=== PATIENT | female | born 1945 | race Caucasian/White ===

== ENCOUNTER 2020-05-02 10:15 | Emergency (ER) | payer MEDICARE, OTHER ==
[2020-05-02] MEDS ORDERED: HYDROmorphone 1 MG/ML 1 ML SYRINGE IVP STA ×2 (10:42→12:45)
[2020-05-02 10:54] LABS: Appearance,Urine Clear (Clear); Basophils % (A) 0 %; Bilirubin,Urine Negative (Negative); Blood,Urine Negative (Negative); Color,Urine Yellow; Eosinophils # (A) 0.1 k/uL (0-0.7); Eosinophils % (A) 1 %; Glucose,Urine (UA) Negative (Negative); HCT 39.3 % (34.0-46.0); HGB 13.4 gm/dL (11.4-16.0); Ketones,Urine Negative (Negative); Leukocyte Esterase,Urine Negative (Negative); Lymphocytes # (A) 0.7 k/uL (1.0-4.8); Lymphocytes % (A) 7 %; MCH 30.7 pg (25.0-35.0); MCHC 34.1 g/dL (31.0-37.0); Monocytes # (A) 0.5 k/uL (0-1.0); Monocytes % (A) 5 %; Neutrophils # (A) 8.3 k/uL (1.3-7.7); Neutrophils % (A) 85 %; Nitrite,Urine Negative (Negative); Platelet Count 167 k/uL (150-450); Protein,Urine Trace (Negative); RBC 4.36 m/uL (3.80-5.40); RDW 14.5 % (11.5-15.5); Specific Gravity,Urine 1.021 (1.001-1.035); WBC 9.8 k/uL (3.8-10.6)
[2020-05-02 11:05] LABS: ALT 36 U/L (4-34); AST 27 U/L (14-36); African American GFR (CKD) >90 (>60 ml/min/1.73 sqM); Albumin 3.3 g/dL (3.5-5.0); Alkaline Phosphatase 90 U/L (38-126); Anion Gap 2 mmol/L; Blood Urea Nitrogen 17 mg/dL (7-17); Calcium 8.6 mg/dL (8.4-10.2); Carbon Dioxide 28 mmol/L (22-30); Chloride 106 mmol/L (98-107); Creatine Kinase 34 U/L (30-135); Glucose 186 mg/dL (74-99); Magnesium 1.7 mg/dL (1.6-2.3); Non-African American GFR(CKD) >90 (>60 ml/min/1.73 sqM); Potassium 4.1 mmol/L (3.5-5.1); Sodium 136 mmol/L (137-145); Total Bilirubin 0.9 mg/dL (0.2-1.3); Total Protein 5.7 g/dL (6.3-8.2)
--- NOTE | 2020-05-02 11:09 | XR ---
EXAMINATION TYPE: XR Hip RT and AP Pelvis DATE OF EXAM: 05/02/2020 COMPARISON: NONE HISTORY: Pelvic and right hip pain after trauma injury. TECHNIQUE: 2 frontal views of the pelvis are obtained. Two views of the right hip are obtained. FINDINGS: [place] osseous structures are demineralized. There is acute comminuted displaced intertroch anteric fracture right proximal femur. Hip joints show moderate axial joint space loss with mild to moderate acetabular spurring bilaterally. No hip joint dislocation is seen. Pubic symphysis is intact . Sacroiliac joints are preserved. No additional fracture seen. Scattered tiny bilateral pelvic phleb olith noted. IMPRESSION: There is acute comminuted displaced intertrochanteric fracture right proximal femur.
[2020-05-02 11:10] LABS: Partial Thromboplastin Time 22.6 sec (22.0-30.0)
[2020-05-02] MEDS ORDERED: DIPH,PERTUS(ACELL)TETVAC-LF 0.5 ML VIAL IM ONE (11:12)
--- NOTE | 2020-05-02 11:12 | ED ---
Fall HPI - General Chief Complaint: Fall Stated Complaint: Fall-Hip Injury Time Seen by Provider: 05/02/20 10:15 Source: patient, EMS, old records reviewed Mode of arrival: EMS - History of Present Illness Initial Comments: This is a 75-year-old female was brought in EMS after falling this morning. She states she recently did have her medications changes been somewhat unsteady on her feet since that time she fell around 2 AM complains or right hip pain prior to that she states she had a scratch on her right leg where a dog had apparently caught her. She was brought in by EMS she had severe pain it was improved after IV medication she did demonstrate shortening and lateral rotation of the right lower extremity. She denies any head neck or upper back pain. MD Complaint: fall - Related Data Home Medications Medication Instructions Recorded Confirmed Acetaminophen [Tylenol] 325 mg PO Q6H PRN 05/02/20 05/02/20 Albuterol Sulfate [Proair Hfa] 1 - 2 puff INHALATION RT-Q6H PRN 05/02/20 05/02/20 Apixaban [Eliquis] 5 mg PO BID 05/02/20 05/02/20 Atorvastatin [Lipitor] 20 mg PO HS 05/02/20 05/02/20 Cholecalciferol [Vitamin D3 (25 2,000 unit PO DAILY 05/02/20 05/02/20 Mcg = 1000 Iu)] Glimepiride [Amaryl] 4 mg PO BID 05/02/20 05/02/20 Ketoconazole 2% Cream [Nizoral 2%] 1 applic TOPICAL DAILY PRN 05/02/20 05/02/20 LORazepam [Ativan] 0.5 mg PO DAILY PRN 05/02/20 05/02/20 Levothyroxine Sodium [Synthroid] 25 mcg PO AC-BRKFST 05/02/20 05/02/20 Losartan Potassium [Cozaar] 25 mg PO DAILY 05/02/20 05/02/20 Metoprolol Succinate (ER) [Toprol 50 mg PO HS 05/02/20 05/02/20 Xl] Multivitamins, Thera [Multivitamin 1 tab PO DAILY 05/02/20 05/02/20 (formulary)] Mupirocin 2% Oint [Bactroban 2% 1 applic TOPICAL BID 05/02/20 05/02/20 Oint] Nystatin 100,000 Unit/gm Powd 1 applic TOPICAL BID PRN 05/02/20 05/02/20 [Mycostatin Powder] [place] 8% 1 applic TOPICAL DAILY PRN 05/02/20 05/02/20 Sertraline [Zoloft] 200 mg PO HS 05/02/20 05/02/20 Triamcinolone 0.1% Cream [Kenalog 1 applic TOPICAL BID 05/02/20 05/02/20 0.1% Cream] Urea40 1 applic TOPICAL DAILY 05/02/20 05/02/20 buPROPion HCL [Wellbutrin SR] 150 mg PO Q12H 05/02/20 05/02/20 tiZANidine HCL [Zanaflex] 2 mg PO DAILY PRN 05/02/20 05/02/20 Allergies Allergy/AdvReac Type Severity Reaction Status Date / Time sulfadiazine Allergy Rash/Hives Verified 05/02/20 11:38 Review of Systems ROS Statement: Those systems with pertinent positive or pertinent negative responses have been documented in the HPI. ROS Other: All systems not noted in ROS Statement are negative. Past Medical History Past Medical History: Atrial Fibrillation, Diabetes Mellitus, Hypertension History of Any Multi-Drug Resistant Organisms: None Reported Past Surgical History: Tonsillectomy Past Psychological History: Anxiety, Depression Smoking Status: Former smoker Past Alcohol Use History: None Reported Past Drug Use History: None Reported General Exam - General Exam Comments Initial Comments: This is a 75-year-old female well-developed well-nourished awake alert oriented 3 [place] Coma Scale 15 Limitations: no limitations General appearance: alert, anxious Head exam: Present: atraumatic, normocephalic, normal inspection Eye exam: Present: normal appearance, PERRL, EOMI. Absent: scleral icterus, conjunctival injection, periorbital swelling ENT exam: Present: normal exam, mucous membranes moist Neck exam: Present: normal inspection, full ROM. Absent: tenderness, meningismus, lymphadenopathy Respiratory exam: Present: normal lung sounds bilaterally. Absent: respiratory distress, wheezes, rales, rhonchi, stridor Cardiovascular Exam: Present: tachycardia, irregular rhythm. Absent: systolic murmur, diastolic murmur, rubs, gallop, clicks GI/Abdominal exam: Present: soft, normal bowel sounds. Absent: distended, tend erness, guarding, rebound, rigid Extremities exam: Present: tenderness, normal capillary refill, other (Tenderness palpation of the right hip with evidence of shortening and lateral rotation. There is a skin avulsion noted to the mid and distal anterior douglas that was covered with a dressing no evidence of any localized infection at this time). Absent: pedal edema, joint swelling, calf tenderness Back exam: Present: normal inspection Neurological exam: Present: alert, oriented X3, CN II-XII intact Psychiatric exam: Present: normal affect, normal mood Skin exam: Present: warm, dry, normal color. Absent: intact, rash Course Vital Signs 05/02/20 10:18 Temperature 97.9 F Pulse Rate 121 H Respiratory 20 Rate Blood Pressure 180/96 O2 Sat by Pulse 99 Oximetry Medical Decision Making - Medical Decision Making I did discuss case with patient family members as well as with Corey Harp. Patient is referred to Dr. Clark at [facility] was agreed to set the patient transfer. Additionally I did discuss the case with the transfer team Dr. Johnson is the accepting physician in the emergency department. Patient be transferred for higher level care by EMS. - Lab Data Result diagrams: 05/02/20 10:35 05/02/20 10:35 Lab Results 05/02/20 05/02/20 05/02/20 Range/Units 10:35 10:35 10:35 WBC 9.8 (3.8-10.6) k/uL RBC 4.36 (3.80-5.40) m/uL Hgb 13.4 (11.4-16.0) gm/dL Hct 39.3 (34.0-46.0) % MCV 90.0 (80.0-100.0) fL MCH 30.7 (25.0-35.0) pg MCHC 34.1 (31.0-37.0) g/dL RDW 14.5 (11.5-15.5) % Plt Count 167 (150-450) k/uL MPV 7.0 Neutrophils % 85 % Lymphocytes % 7 % Monocytes % 5 % Eosinophils % 1 % Basophils % 0 % Neutrophils # 8.3 H (1.3-7.7) k/uL Lymphocytes # 0.7 L (1.0-4.8) k/uL Monocytes # 0.5 (0-1.0) k/uL Eosinophils # 0.1 (0-0.7) k/uL Basophils # 0.0 (0-0.2) k/uL PT (9.0-12.0) sec INR (<1.2) APTT (22.0-30.0) sec Sodium 136 L (137-145) mmol/L Potassium 4.1 (3.5-5.1) mmol/L Chloride 106 (98-107) mmol/L Carbon Dioxide 28 (22-30) mmol/L Anion Gap 2 mmol/L BUN 17 (7-17) mg/dL Creatinine 0.54 (0.52-1.04) mg/dL Est GFR (CKD-EPI)AfAm >90 (>60 ml/min/1.73 sqM) Est GFR (CKD-EPI)NonAf >90 (>60 ml/min/1.73 sqM) Glucose 186 H (74-99) mg/dL Calcium 8.6 (8.4-10.2) mg/dL Magnesium 1.7 (1.6-2.3) mg/dL Total Bilirubin 0.9 (0.2-1.3) mg/dL AST 27 (14-36) U/L ALT 36 H (4-34) U/L Alkaline Phosphatase 90 (38-126) U/L Creatine Kinase 34 (30-135) U/L Troponin I (0.000-0.034) ng/mL Total Protein 5.7 L (6.3-8.2) g/dL Albumin 3.3 L (3.5-5.0) g/dL Urine Color Yellow Urine Appearance Clear (Clear) Urine pH 7.0 (5.0-8.0) Ur Specific [place] 1.021 (1.001-1.035) Urine Protein Trace H (Negative) Urine Glucose (UA) Negative (Negative) Urine Ketones Negative (Negative) Urine Blood Negative (Negative) Urine Nitrite Negative (Negative) Urine Bilirubin Negative (Negative) Urine Urobilinogen 2.0 (<2.0) mg/dL Ur Leukocyte Esterase Negative (Negative) 05/02/20 05/02/20 Range/Units 10:35 10:35 WBC (3.8-10.6) k/uL RBC (3.80-5.40) m/uL Hgb (11.4-16.0) gm/dL Hct (34.0-46.0) % MCV (80.0-100.0) fL MCH (25.0-35.0) pg MCHC (31.0-37.0) g/dL RDW (11.5-15.5) % Plt Count (150-450) k/uL MPV Neutrophils % % Lymphocytes % % Monocytes % % Eosinophils % % Basophils % % Neutrophils # (1.3-7.7) k/uL Lymphocytes # (1.0-4.8) k/uL Monocytes # (0-1.0) k/uL Eosinophils # (0-0.7) k/uL Basophils # (0-0.2) k/uL PT 11.0 (9.0-12.0) sec INR 1.0 (<1.2) APTT 22.6 (22.0-30.0) sec Sodium (137-145) mmol/L Potassium (3.5-5.1) mmol/L Chloride (98-107) mmol/L Carbon Dioxide (22-30) mmol/L Anion Gap mmol/L BUN (7-17) mg/dL Creatinine (0.52-1.04) mg/dL Est GFR (CKD-EPI)AfAm (>60 ml/min/1.73 sqM) Est GFR (CKD-EPI)NonAf (>60 ml/min/1.73 sqM) Glucose (74-99) mg/dL Calcium (8.4-10.2) mg/dL Magnesium (1.6-2.3) mg/dL Total Bilirubin (0.2-1.3) mg/dL AST (14-36) U/L ALT (4-34) U/L Alkaline Phosphatase (38-126) U/L Creatine Kinase (30-135) U/L Troponin I <0.012 (0.000-0.034) ng/mL Total Protein (6.3-8.2) g/dL Albumin (3.5-5.0) g/dL Urine Color Urine Appearance (Clear) Urine pH (5.0-8.0) Ur Specific [place] (1.001-1.035) Urine Protein (Negative) Urine Glucose (UA) (Negative) Urine Ketones (Negative) Urine Blood (Negative) Urine Nitrite (Negative) Urine Bilirubin (Negative) Urine Urobilinogen (<2.0) mg/dL Ur Leukocyte Esterase (Negative) - EKG Data -: EKG Interpreted by Me EKG Comments: Atrial flutter with variable AV block rate 111 QRS 1:30 QT since QTC 340/427 left exodeviation LVH - Radiology Data Radiology results: report reviewed (I did review the imaging and report evidence of a displaced comminuted right intertrochanteric right hip fracture), image reviewed Disposition Clinical Impression: Fall, Closed right hip fracture, Chronic atrial fibrillation, Avulsion of skin of right lower leg Disposition: OTHER INSTITUTION NOT DEFINED Condition: Fair Referrals: Corrine Fischer MD [Primary Care Provider] - 1-2 days - Out of Hospital Transfer - Req. Specs Out of Hospital Transfer - Requested Specifics: Other Emergency Center
--- NOTE | 2020-05-02 11:18 | XR ---
EXAMINATION TYPE: XR chest 1V DATE OF EXAM: 05/02/2020 COMPARISON: NONE HISTORY: Fall injury with pain. TECHNIQUE: Single frontal supine view of the chest is obtained. FINDINGS: There is no focal air space opacity, pleural effusion, or pneumothorax seen. The cardiac silhouette size is enlarged. The osseous structures are demineralized. IMPRESSION: Cardiomegaly without suspicious acute pulmonary process.
[2020-05-02 12:23] VITALS: BP 168/88; PULSE 78; RESP 18; TEMP 97.6
== END 2020-05-02 13:02 | disposition other institution (70) ==
LOC: EC 10:15
DX: S72.141A Displaced intertrochanteric fracture of right femur, initial encounter for closed fracture (principal); I48.20 Chronic atrial fibrillation, unspecified; S81.801A Unspecified open wound, right lower leg, initial encounter; E11.9 Type 2 diabetes mellitus without complications; I10 Essential (primary) hypertension; Z23 Encounter for immunization; F41.9 Anxiety disorder, unspecified; F32.9 Major depressive disorder, single episode, unspecified; Z79.01 Long term (current) use of anticoagulants; Z79.899 Other long term (current) drug therapy; Z79.84 Long term (current) use of oral hypoglycemic drugs; Z87.891 Personal history of nicotine dependence; Z88.2 Allergy status to sulfonamides; W19.XXXA Unspecified fall, initial encounter
CPT/HCPCS: 36415; 93005; 80053; 82550; 83735; 84484; 85025; 85610; 85730; 81003; 73502; 71045; 90715; 99285; 96374; 96376; 90471; J1170

== ENCOUNTER → 2022-02-26 | Outpatient (CLI) | payer MEDICARE, OTHER ==
--- NOTE | 2022-02-26 15:38 | P.SLEEP ---
History of Present Illness DATE: 02/26/2022 CONSULTATION/NEW PATIENT EVALUATION HISTORY OF PRESENT ILLNESS/SLEEP-WAKE EVALUATION: 76 year old lady had been evaluated in the sleep center for possible obstructive sleep apnea hypopnea syndrome. SLEEP SCHEDULE: Usually sleep schedule on weekdays from 12 midnight to 12 known, during days off from 2 AM until 7:30 AM. FALLING ASLEEP: No significant problems with falling asleep, although patient has TV set and bedroom. DURING SLEEP: Patient usually sleeps on the back position with snoring and witnessed episodes of stop breathing during the sleep. Positive history of dry mouth, panic attack, palpitation, sleep talking. Patient wakes up from sleep up to 4 times with more then 2 episodes of nocturia. No history of hypnogogical hallucinations, sleep paralysis, or cataplexy. DURING THE DAY/WAKE STATE: Patient wakes up tired, has difficulties to pay attention, falling asleep during the day, has problems with memory concentration, anxiety, claustrophobia.. [place] sleepiness scale is significantly increased to 12. Patient takes nap around 3 PM. PAST MEDICAL HISTORY: Hypertension, arterial fibrillation, diabetes mellitus, depression, overactive bladder . PAST SURGICAL HISTORY: [].tonsillectomy, right hip surgery for fracture in 2019. MEDICATIONS: Levothyroxine 25 g once a day, Eliquis 5 mg once a day, glimepiride 4 mg once a day, metformin 500 mg, metoprolol 100 mg once a day, sertraline 200 mg once a day. SOCIAL HISTORY: Positive for smoking in the past, quit about 40 years ago , alcohol consumption none at the present time. FAMILY HISTORY: Hypertension, heart problems, cancer, depression, diabetes. REVIEW OF SYSTEMS: Snoring, multiple awakenings from sleep, sleepiness during the day. No fevers. No double vision. No recent chest pain. No shortness of breath. No abdominal pain. No bleeding episodes. No blood in urine. No seizure episodes. PHYSICAL EXAMINATION: GENERAL: A pleasant patient without any distress. VITAL SIGNS: BP 137/84 , HR 72 , RR 14 , weight 208.2 pounds, height 5 foot 7 inches, body mass index 32.5 . HEENT: PERRLA, EOMI. Evaluation of oropharynx showed tongue protrudes midline, low position of soft palate Mallampati 3. NECK: Supple. No JVD. Thyroid is not palpable. 15 and three-quarter inches in circumference. LUNGS: Clear to percussion and to auscultation. Good air exchange. No wheezing or rhonchi. HEART: S1, S2 irregular. No murmurs, gallops or rubs. ABDOMEN: Soft and nontender. Bowel sounds are present. No organomegaly appre ciated. EXTREMITIES: No clubbing or cyanosis. [employer]ER: Awake, alert, and oriented x3. Cranial nerves 2 to 7 intact. There is no fasciculation or atrophy noted. No focal deficits observed. ASSESSMENT: 1. Snoring, multiple awakenings from sleep, witnessed episodes of stop breathing during the sleep, low position of soft palate Mallampati 3, sleepiness [place] Sleepiness Scale increased to 12. Obstructive sleep apnea hypopnea syndrome. 2. Hypertension. 3 atrial fibrillation. 4. Mild obesity BMI 32.5. 5 diabetes mellitus. 6. History of overactive bladder. 7. History of depression. 8. Status post tonsillectomy. 9. Status post right hip surgery for fracture. PLAN: 1. Polysomnography for evaluation of patient's breathing during sleep. 2. CPAP/BiPAP titration if sleep study confirms obstructive sleep apnea- hypopnea syndrome. 3. Preferable position during sleep on the side. 4. No driving if patient feels any sleepiness. Patient is aware of civil and criminal liability for unsafe driving. 5. Sleep hygiene with regular sleep time for at least 7.5-8 hours. 6. Watching weight. Thank you very much for referring this patient for consultation. Sincerely, Mart Monsalve MD, PhD, FAASM. Diplomat of [place] [employer], Sleep Medicine Board by [place] [employer] [place] [employer] [facility] Past Medical History Past Medical History: Atrial Fibrillation, Diabetes Mellitus, Hypertension History of Any Multi-Drug Resistant Organisms: None Reported Past Surgical History: Tonsillectomy Past Psychological History: Anxiety, Depression Smoking Status: Former smoker Past Alcohol Use History: None Reported Past Drug Use History: None Reported Medications and Allergies Home Medications Medication Instructions Recorded Confirmed Type Acetaminophen [Tylenol] 325 mg PO Q6H PRN 05/02/20 05/02/20 History Albuterol Sulfate [Proair Hfa] 1 - 2 puff INHALATION RT-Q6H PRN 05/02/20 05/02/20 History Apixaban [Eliquis] 5 mg PO BID 05/02/20 05/02/20 History Atorvastatin [Lipitor] 20 mg PO HS 05/02/20 05/02/20 History Cholecalciferol [Vitamin D3 (25 2,000 unit PO DAILY 05/02/20 05/02/20 History Mcg = 1000 Iu)] Glimepiride [Amaryl] 4 mg PO BID 05/02/20 05/02/20 History Ketoconazole 2% Cream [Nizoral 2%] 1 applic TOPICAL DAILY PRN 05/02/20 05/02/20 History LORazepam [Ativan] 0.5 mg PO DAILY PRN 05/02/20 05/02/20 History Levothyroxine Sodium [Synthroid] 25 mcg PO AC-BRKFST 05/02/20 05/02/20 History Losartan Potassium [Cozaar] 25 mg PO DAILY 05/02/20 05/02/20 History Metoprolol Succinate (ER) [Toprol 50 mg PO HS 05/02/20 05/02/20 History Xl] Multivitamins, Thera [Multivitamin 1 tab PO DAILY 05/02/20 05/02/20 History (formulary)] Mupirocin 2% Oint [Bactroban 2% 1 applic TOPICAL BID 05/02/20 05/02/20 History Oint] Nystatin 100,000 Unit/gm Powd 1 applic TOPICAL BID PRN 05/02/20 05/02/20 History [Mycostatin Powder] [place] Nail [place] 8% 1 applic TOPICAL DAILY PRN 05/02/20 05/02/20 History Sertraline [Zoloft] 200 mg PO HS 05/02/20 05/02/20 History Triamcinolone 0.1% Cream [Kenalog 1 applic TOPICAL BID 05/02/20 05/02/20 History 0.1% Cream] Urea40 1 applic TOPICAL DAILY 05/02/20 05/02/20 History buPROPion HCL [Wellbutrin SR] 150 mg PO Q12H 05/02/20 05/02/20 History tiZANidine HCL [Zanaflex] 2 mg PO DAILY PRN 05/02/20 05/02/20 History Allergies Allergy/AdvReac Type Severity Reaction Status Date / Time sulfadiazine Allergy Rash/Hives Verified 05/02/20 11:38 Sleep Note - Sleep Note Sleep Note: Temperature: Pulse Rate: Respiratory Rate: Blood Pressure: SpO2: Height: Weight: BMI: Neck Circumference:
== END ==
LOC: SLEEP 14:17
PROVIDERS: ATTEND Internal Medicine
DX: G47.33 Obstructive sleep apnea (adult) (pediatric) (principal); I10 Essential (primary) hypertension; I48.91 Unspecified atrial fibrillation; E66.8 Other obesity; Z68.32 Body mass index [BMI] 32.0-32.9, adult; E11.9 Type 2 diabetes mellitus without complications; Z98.890 Other specified postprocedural states; Z79.899 Other long term (current) drug therapy; Z79.84 Long term (current) use of oral hypoglycemic drugs; Z87.448 Personal history of other diseases of urinary system; Z86.59 Personal history of other mental and behavioral disorders; Z90.89 Acquired absence of other organs; Z88.2 Allergy status to sulfonamides
CPT/HCPCS: 99211